=== PATIENT | male | born 1995 | race Caucasian/White ===

== ENCOUNTER 2017-04-03 11:04 | Emergency (ER) | payer OTHER ==
[~2017-04-03] VITALS: Ht 177.8 cm; Wt 81.6 kg
--- NOTE | 2017-04-03 11:07 | NUR ---
PT AMBULATORY TO ER BED 09. C/O BLOOD IN STOOL NOTED THIS AM. NO DIZZINESS. PT IS AAOX3. NAD NOTED. ALSO C/O LT ANKLE PAIN. AWAITING MD PICKENS.
--- NOTE | 2017-04-03 11:22 | NUR ---
DR DOWELL AT BEDSIDE FOR EVAL.
--- NOTE | 2017-04-03 11:30 | NUR ---
INFORMAL WAITER/WAITRESS AT BEDSIDE FOR BLOOD DRAW.
--- NOTE | 2017-04-03 11:30 | NUR ---
Rory busch in [facility] - 04/03/17 at 1229 by [place] FACILITY ADMINISTRATOR AT BEDSIDE FOR PRISCILAAL.
[2017-04-03 11:41] LABS: BASOPHILS # (AUTO) 0.1 /CMM (0.0-0.2); BASOPHILS % (AUTO) 0.9 % (0.0-2.0); EOSINOPHILS # (AUTO) 0.2 /CMM (0.0-0.7); EOSINOPHILS % (AUTO) 2.5 % (0.0-6.0); HEMATOCRIT 49 % (39-51); HEMOGLOBIN 16.6 g/dL (13.5-17.5); LYMPHOCYTES # (AUTO) 2.5 /CMM (0.8-4.8); LYMPHOCYTES % (AUTO) 30.1 % (20.0-44.0); MEAN CORPUSCULAR HEMOGLOBIN 30 PG (26.0-33.0); MEAN CORPUSCULAR HGB CONC 34 g/dl (31.0-36.0); MEAN CORPUSCULAR VOLUME 87 fL (80-96); MONOCYTES # (AUTO) 0.5 /CMM (0.1-1.30); MONOCYTES % (AUTO) 6.5 % (2.0-12.0); NEUTROPHILS # (AUTO) 5.1 /CMM (1.8-8.9); PLATELET COUNT (AUTO) 254 /CMM (150-450); RED BLOOD CELL COUNT(AUTO) 5.62 MIL/uL (4.5-6.0); WHITE BLOOD COUNT (AUTO) 8.4 K/uL (4.3-11.0)
[2017-04-03 11:56] LABS: INR 0.93 (0.87-1.13); PROTHROMBIN TIME 9.7 SECS (9.5-12.7)
--- NOTE | 2017-04-03 12:29 | NUR ---
KIM WRAP AND AIR SPINT APPLIED.
[2017-04-03 12:30] VITALS: BP 132/77
--- NOTE | 2017-04-03 12:30 | NUR ---
Patient discharged to home in stable condition. Written and verbal after care instructions given. Patient verbalizes understanding of instruction.Crutches dispensed. Pt instructed on proper use of crutches. Patient able to demonstrate correct use of crutches.
== END 2017-04-03 12:31 | disposition home or self-care (01) ==
LOC: ER 11:07
DX: S93.492A Sprain of other ligament of left ankle, initial encounter (principal); K62.5 Hemorrhage of anus and rectum; F41.9 Anxiety disorder, unspecified; J45.909 Unspecified asthma, uncomplicated; X58.XXXA Exposure to other specified factors, initial encounter; Y92.89 Other specified places as the place of occurrence of the external cause; Y93.89 Activity, other specified; Y99.8 Other external cause status
CPT/HCPCS: 36415; 73610-TC; 85025-TC; 85730-TC; A4606; Z7610

== ENCOUNTER 2021-12-27 15:11 | Emergency (ER) | payer SELFPAY ==
[~2021-12-27] VITALS: Ht 170.2 cm; Wt 77.1 kg
--- NOTE | 2021-12-27 15:22 | NUR ---
SEEN AND EXAMINED BY .
--- NOTE | 2021-12-27 15:50 | NUR ---
Patient does not wish to proceed with medical care recommended by Dr. Akers. Patient given information related to possible complications, up to and including , which could occur as a result of leaving the hospital at this time. Patient verbalizes understanding of risks involved due to leaving against medical advice. Patient has signed AMA form.
[2021-12-27 15:52] VITALS: BP 126/77
== END 2021-12-27 15:53 | disposition left against medical advice (07) ==
LOC: ER 15:13
DX: R07.89 Other chest pain (principal); J45.909 Unspecified asthma, uncomplicated; F41.9 Anxiety disorder, unspecified; F98.8 Other specified behavioral and emotional disorders with onset usually occurring in childhood and adolescence